=== PATIENT | female | born 1965 | race African-American/Black ===

== ENCOUNTER 2017-04-19 03:10 | Emergency (ER) | payer MEDICARE, MEDICAID ==
[~2017-04-19] VITALS: Ht 165.1 cm; Wt 193.0 kg
[~2017-04-19 03:10] MED LIST: ACETTAB3 OR; ATORVASTATIN CA40 MG PO; BACTRIM DS1 TAB PO; CEPHALEXIN500 MG PO; CIPRO250 MG OR; CIPROFLOXACN500 MG PO; CRANBERRY250 M1 PO; CYCLOBENZAPR10 MG PO; DIABETA2.5 MG OR; DICLOFENAC75 MG OR; FEOSOL45 MG PO; FERR SULFATE325 MG PO; GLUCOPHAGE500 MG OR; GLYBURIDE5 MG PO; HYDROCHLOROT25 MG OR; IBUPROFEN800 MG OR; INSULIN SC; JANUVIA100 MG OR; KEFLEX500 MG PO; LEVEMIR FL100 UNIT/M SC; LEVEMIR FLEXPEN SC; LISINOP/HCTZ1 TAB OR; LISINOP/HCTZ1 TAB PO; LISINOPRIL/HYDR1 TA1 PO; MEGACE20 MG PO; MEGESTROL AC20 MG OR; MEGESTROL AC20 MG PO; METFORMIN500 MG PO; MOTRIN800 MG/TAB PO; NAPROSYN250 MG PO; NAPROSYN500 MG PO; NEO/POLY/HC11 OT; NOVOLOG FLEXPEN SC; PREMARIN VAG0.625 MG VA; PREMARIN1.25 MG OR; PREMARIN1.25 MG PO; PRILOSEC20 MG/CAP PO; PYRIDIUM200 MG OR; TORADOL30 MG/VIAL IJ; TRAMADOL HCL50 MG PO; ZITHROMAX250 MG OR; [UNRECOGNIZED DRUG - REMARK] OR; [UNRECOGNIZED DRUG - SUPPLY] XX
[2017-04-19] MEDS ORDERED: ATORVASTATIN CA10 MG PO (03:20)
[2017-04-19 03:48] LABS: INFLUENZA A POSITIVE (NONE DETECT); INFLUENZA B NONE DETECTED (NONE DETECT)
[2017-04-19] MEDS ORDERED: TAM75CAP PO (04:13)
[2017-04-19] MEDS ORDERED: ROBITUSSIN AC10 ML PO (04:13)
--- NOTE | 2017-04-19 04:24 | NUR ---
BREATHING TREATMENT GIVEN. BREATHING TECH. FOR GOOD DEPOSITION TO THE LUNGS.
[2017-04-19 04:35] VITALS: BP 147/95
== END 2017-04-19 04:35 | disposition home or self-care (01) ==
LOC: ED 03:10
PROVIDERS: Emergency Medicine
DX: J11.1 Influenza due to unidentified influenza virus with other respiratory manifestations (principal); R05 Cough; R50.9 Fever, unspecified; R52 Pain, unspecified; I10 Essential (primary) hypertension; E11.9 Type 2 diabetes mellitus without complications; Z79.4 Long term (current) use of insulin

== ENCOUNTER 2018-01-31 09:03 | Emergency (ER) | payer MEDICARE, MEDICAID ==
[~2018-01-31] VITALS: Ht 165.1 cm; Wt 200.0 kg
[~2018-01-31 09:03] MED LIST changes: +ATORVASTATIN CA10 MG PO; +ROBITUSSIN AC10 ML PO; +TAM75CAP PO
[2018-01-31] MEDS ORDERED: MELOXICAM7.5 MG PO (10:06)
[2018-01-31] MEDS ORDERED: CENTRUM SILVER1 TA1 PO (10:08)
[2018-01-31] MEDS ORDERED: VICTOZA18 MG/3 ML SC (10:10)
[2018-01-31] MEDS ORDERED: TRESIBA FL200 UNIT/M SC (10:11)
[2018-01-31] MEDS ORDERED: CYCLOBENZAPRINE5 MG PO (10:31)
[2018-01-31] MEDS ORDERED: MOTRIN400 MG PO (10:31)
[2018-01-31 10:35] VITALS: BP 172/112
== END 2018-01-31 10:51 | disposition home or self-care (01) ==
LOC: ED 09:03
DX: M54.5 Low back pain (principal); M25.551 Pain in right hip; M79.604 Pain in right leg; I10 Essential (primary) hypertension; E11.9 Type 2 diabetes mellitus without complications

== ENCOUNTER 2018-05-08 20:34 | Emergency (ER) | payer MEDICARE, MEDICAID ==
[~2018-05-08] VITALS: Ht 165.1 cm; Wt 201.8 kg
[~2018-05-08 20:34] MED LIST changes: +CENTRUM SILVER1 TA1 PO; +CYCLOBENZAPRINE5 MG PO; +MELOXICAM7.5 MG PO; +MOTRIN400 MG PO; +TRESIBA FL200 UNIT/M SC; +VICTOZA18 MG/3 ML SC
[2018-05-08 23:54] VITALS: BP 135/84
== END 2018-05-08 23:54 | disposition left against medical advice (07) ==
LOC: ED 20:34
DX: R09.89 Other specified symptoms and signs involving the circulatory and respiratory systems (principal); X58.XXXA Exposure to other specified factors, initial encounter; Y92.009 Unspecified place in unspecified non-institutional (private) residence as the place of occurrence of the external cause; Z91.19 Patient's noncompliance with other medical treatment and regimen

== ENCOUNTER 2019-10-17 07:31 | Emergency (ER) | payer MEDICARE, MEDICAID ==
[~2019-10-17] VITALS: Ht 165.1 cm; Wt 199.0 kg
[2019-10-17 08:44] LABS: HEMATOCRIT 32.8 % (37.0-47.0); HEMOGLOBIN 11.5 g/dl (12.0-16.0); IMMATURE GRANULOCYTES 0.4 % (0.0-5.0); MEAN CORPUSCULAR HGB 28.9 pG CALC (26.0-32.0); MEAN CORPUSCULAR HGB CONC 35.1 g/dL CAL (32.0-36.0); NEUT# 5.52 thou/uL (2.00-7.15); RED BLOOD COUNT 3.98 mill/uL (4.20-5.60); RED CELL DISTRI WIDTH 14.5 % (11.5-15.5)
[2019-10-17 08:56] LABS: MEAN CELL VOLUME 82.4 fL CALC (80.0-100.0)
[2019-10-17 09:00] LABS: ALBUMIN 3.9 g/dL (3.2-5.0); ALKALINE PHOSPHATASE 62 u/l (38-126); ANION GAP 12 (6-22 (CALC)); BILIRUBIN, TOTAL 0.4 mg/dL (0.0-1.4); BUN 18 mg/dL (7-17); BUN/CREATININE RATIO 18 (12-20 (CALC)); CARBON DIOXIDE 23 mmol/l (22-30); CHLORIDE 107 mmol/l (95-108); GFR 58 ML/MIN (>=60 (CALC)); GFR FOR AFR.AMER. > 60 ML/MIN (>=60 (CALC)); SGOT/AST 25 u/l (14-36); SODIUM 137 mmol/l (137-146); TOTAL PROTEIN 7.8 g/dL (6.3-8.2)
[2019-10-17 09:16] LABS: POTASSIUM 4.6 mmol/l (3.5-5.1)
[2019-10-17] MEDS ORDERED: FLEXERIL PO (09:57)
[2019-10-17] MEDS ORDERED: LOMOTIL2.5 MG PO (09:57)
[2019-10-17] MEDS ORDERED: ULTRAM50 M1 PO (09:57)
[2019-10-17 10:03] VITALS: BP 138/80
== END 2019-10-17 10:17 | disposition home or self-care (01) ==
LOC: ED 07:31
PROVIDERS: Emergency Medicine
DX: M54.41 Lumbago with sciatica, right side (principal); M47.816 Spondylosis without myelopathy or radiculopathy, lumbar region; I10 Essential (primary) hypertension; E11.9 Type 2 diabetes mellitus without complications; E66.01 Morbid (severe) obesity due to excess calories; Z86.19 Personal history of other infectious and parasitic diseases; Z79.4 Long term (current) use of insulin

== ENCOUNTER 2020-04-07 15:00 | Emergency (ER) | payer MEDICARE, MEDICAID ==
[~2020-04-07] VITALS: Ht 165.1 cm; Wt 198.6 kg
[~2020-04-07 15:00] MED LIST changes: +FLEXERIL PO; +LOMOTIL2.5 MG PO; +ULTRAM50 M1 PO
[2020-04-07 16:25] LABS: HEMATOCRIT 34.5 % (37.0-47.0); HEMOGLOBIN 12.2 g/dl (12.0-16.0); IMMATURE GRANULOCYTES 0.5 % (0.0-5.0); MEAN CELL VOLUME 82.7 fL CALC (80.0-100.0); MEAN CORPUSCULAR HGB 29.3 pG CALC (26.0-32.0); MEAN CORPUSCULAR HGB CONC 35.4 g/dL CAL (32.0-36.0); NEUT# 7.03 thou/uL (2.00-7.15); RED BLOOD COUNT 4.17 mill/uL (4.20-5.60); RED CELL DISTRI WIDTH 14.6 % (11.5-15.5)
[2020-04-07 16:48] LABS: ALBUMIN 3.9 g/dL (3.2-5.0); ALKALINE PHOSPHATASE 61 u/l (38-126); ANION GAP 13 (6-22 (CALC)); BILIRUBIN, TOTAL 0.3 mg/dL (0.0-1.4); BUN 16 mg/dL (7-17); BUN/CREATININE RATIO 17 (12-20 (CALC)); CARBON DIOXIDE 23 mmol/l (22-30); CHLORIDE 106 mmol/l (95-108); CREATININE 0.9 mg/dL (0.5-1.0); GFR > 60 ML/MIN (>=60 (CALC)); GFR FOR AFR.AMER. > 60 ML/MIN (>=60 (CALC)); INTERNATIONAL NORMALIZED RATIO 0.9 RATIO (0.7-1.3); POTASSIUM 4.1 mmol/l (3.5-5.1); SGOT/AST 33 u/l (14-36); SODIUM 137 mmol/l (137-146); TOTAL PROTEIN 7.7 g/dL (6.3-8.2)
[2020-04-07 16:54] LABS: PROTHROMBIN TIME 8.8 SECONDS (9.0-12.5)
[2020-04-07 17:37] VITALS: BP 109/67
== END 2020-04-07 18:13 | disposition home or self-care (01) ==
LOC: ED 15:00
PROVIDERS: Student in an Organized Health Care Education/Training Program
DX: R06.02 Shortness of breath (principal); E11.9 Type 2 diabetes mellitus without complications; I10 Essential (primary) hypertension; E66.01 Morbid (severe) obesity due to excess calories; Z79.4 Long term (current) use of insulin; Z86.19 Personal history of other infectious and parasitic diseases; Z20.828 Contact with and (suspected) exposure to other viral communicable diseases

== ENCOUNTER 2020-06-02 06:44 | Day surgery (SDC) | payer MEDICARE, MEDICAID ==
[~2020-06-02] VITALS: Ht 165.1 cm; Wt 200.0 kg
[~2020-06-02 06:44] MED LIST changes: +AMMONIUM LACTATE12 % EX; +ASPIRIN ADULT L81 M2 PO; +CYCLOBENZAPRINE10 MG PO; +DICLOFENAC SODIUM1 % EX; +DIPHEN/ATROP2.5 M1 PO; +FOLIC ACID400 MC1 PO; +FUROSEMIDE80 M1 PO; +KLOR-CON M1010 MEQ PO; +KLS IBUPROFEN IB PO; +LIPITOR40 M1 PO; +METFORMIN HCL500 M1 PO; +METOPROL TAR25 M1 PO; +NEURONTIN300 MG PO; +NORCO1 TA2 PO; +SM ALLERGY50 MCG/ACT; +VENTOLIN HF1 IN; +VITAMIN B COMPL1 TAB PO
[2020-06-02 09:40] VITALS: BP 154/78
== END 2020-06-02 10:01 | disposition home or self-care (01) ==
LOC: ORM 06:44
PROVIDERS: ATTEND Anesthesiology Pain Medicine
DX: M54.5 Low back pain (principal); M46.1 Sacroiliitis, not elsewhere classified; M12.9 Arthropathy, unspecified; Z01.84 Encounter for antibody response examination

== ENCOUNTER 2021-03-19 15:47 | Emergency (ER) | payer MEDICARE, MEDICAID ==
[~2021-03-19] VITALS: Ht 165.1 cm; Wt 220.0 kg
[~2021-03-19 15:47] MED LIST changes: +HYDROCO/APAP1 T10 PO; +NEURONTIN600 MG PO
[2021-03-19 17:24] LABS: HEMATOCRIT 36.9 % (37.0-47.0); HEMOGLOBIN 13.1 g/dl (12.0-16.0); IMMATURE GRANULOCYTES 0.4 % (0.0-5.0); MEAN CELL VOLUME 82.9 fL CALC (80.0-100.0); MEAN CORPUSCULAR HGB 29.4 pG CALC (26.0-32.0); MEAN CORPUSCULAR HGB CONC 35.5 g/dL CAL (32.0-36.0); NEUT# 5.13 thou/uL (2.00-7.15); RED BLOOD COUNT 4.45 mill/uL (4.20-5.60); RED CELL DISTRI WIDTH 14.1 % (11.5-15.5)
[2021-03-19 17:39] LABS: CREATININE 1.2 mg/dL (0.5-1.0); POTASSIUM 4.2 mmol/l (3.5-5.1)
[2021-03-19] MEDS ORDERED: ZPAK PO (18:20)
[2021-03-19] MEDS ORDERED: PROVENTIL0.083 % IN (18:20)
[2021-03-19] MEDS ORDERED: PROAIR HFA108 MCG/AC PO (18:20)
[2021-03-19] MEDS ORDERED: NEBULIZER KIT/TUBING PO (18:20)
[2021-03-19] MEDS ORDERED: DECADRON4 M1 PO (18:20)
[2021-03-19] MEDS ORDERED: MECLIZINE25 MG PO (18:20)
[2021-03-19 19:09] VITALS: BP 135/68
== END 2021-03-19 19:24 | disposition home or self-care (01) ==
LOC: ED 15:47
PROVIDERS: Family Medicine
DX: R42 Dizziness and giddiness (principal); J06.9 Acute upper respiratory infection, unspecified; I10 Essential (primary) hypertension; E11.9 Type 2 diabetes mellitus without complications; E66.01 Morbid (severe) obesity due to excess calories; Z86.16 Personal history of COVID-19; Z79.84 Long term (current) use of oral hypoglycemic drugs; Z79.4 Long term (current) use of insulin; Z20.822 Contact with and (suspected) exposure to COVID-19

== ENCOUNTER 2021-09-05 10:11 | Emergency (ER) | payer MEDICARE, MEDICAID ==
[~2021-09-05] VITALS: Ht 165.1 cm; Wt 204.0 kg
[~2021-09-05 10:11] MED LIST changes: +DECADRON4 M1 PO; +MECLIZINE25 MG PO; +NEBULIZER KIT/TUBING PO; +PROAIR HFA108 MCG/AC PO; +PROVENTIL0.083 % IN; +ZPAK PO
[2021-09-05 10:46] VITALS: BP 136/81
[2021-09-05 11:00] VITALS: BP 149/90
[2021-09-05 11:23] VITALS: BP 149/90
[2021-09-05] MEDS ORDERED: ATIVAN1 M1 PO (13:03)
[2021-09-05] MEDS ORDERED: PREDNISONE20 MG PO (13:03)
== END 2021-09-05 13:20 | disposition home or self-care (01) ==
LOC: ED 10:11
DX: M54.9 Dorsalgia, unspecified (principal); M79.604 Pain in right leg; I10 Essential (primary) hypertension; E11.9 Type 2 diabetes mellitus without complications; Z86.16 Personal history of COVID-19; E66.01 Morbid (severe) obesity due to excess calories; Z79.84 Long term (current) use of oral hypoglycemic drugs; Z79.4 Long term (current) use of insulin
CPT/HCPCS: J2060

== ENCOUNTER 2023-05-24 11:58 | Observation (INO) | payer MEDICARE, MEDICAID ==
[~2023-05-24] VITALS: Ht 165.1 cm; Wt 184.2 kg
[2023-05-24] VITALS (18 sets, daily range): BP systolic 82–166; BP diastolic 46–103
[~2023-05-24 11:58] MED LIST changes: +ATIVAN1 M1 PO; +FLEXERIL5 M1 PO; +PREDNISONE20 MG PO
[2023-05-24 12:55] LABS: BASO% 0.1 % (0-3); EOS% 6.7 % (0-8); HEMATOCRIT 34.1 % (37.0-47.0); HEMOGLOBIN 12.3 g/dl (12.0-16.0); IMMATURE GRANULOCYTES 0.3 % (0.0-5.0); LYMPH% 33.3 % (15-41); MEAN CELL VOLUME 83.6 fL CALC (80.0-100.0); MEAN CORPUSCULAR HGB 30.1 pG CALC (26.0-32.0); MEAN CORPUSCULAR HGB CONC 36.1 g/dL CAL (32.0-36.0); MONO% 6.2 % (2-13); NEUT# 6.26 thou/uL (2.00-7.15); NEUT% 53.4 % (42-76); RED BLOOD COUNT 4.08 mill/uL (4.20-5.60); RED CELL DISTRI WIDTH 13.9 % (11.5-15.5)
[2023-05-24 14:03] LABS: ALBUMIN 4.2 g/dL (3.2-5.0); ALKALINE PHOSPHATASE 83 u/l (38-126); BILIRUBIN, TOTAL 0.4 mg/dL (0.02-1.3); CHLORIDE 107 mmol/l (95-108); CREATININE 1.5 mg/dL (0.5-1.0); GFR FOR AFR.AMER. 43 ML/MIN (>=60 (CALC)); GFR OTHER RACES 36 ML/MIN (>=60 (CALC)); POTASSIUM 4.8 mmol/l (3.5-5.1); SGOT/AST 19 u/l (14-36); SODIUM 141 mmol/l (137-146); TOTAL PROTEIN 7.7 g/dL (6.3-8.2)
[2023-05-24 14:10] LABS: URINE BILIRUBIN - DIPSTICK Negative (NEGATIVE); URINE BLOOD DIPSTICK Negative (NEGATIVE); URINE GLUCOSE - DIPSTICK Negative (NEGATIVE); URINE KETONE Negative (NEGATIVE); URINE LEUK ESTERASE Negative (NEGATIVE); URINE NITRITE - DIPSTICK Negative (Negative); URINE PH 5.5 (4.5-8.0); URINE PROTEIN - DIPSTICK Negative (NEG-TRACE); URINE UROBILINOGEN - DIPSTICK 0.2 E.U./dL (0.2)
[2023-05-24 14:11] LABS: ANION GAP 16 (6-22 (CALC)); BUN 36 mg/dL (7-17); BUN/CREATININE RATIO 24 (12-20 (CALC)); CARBON DIOXIDE 23 mmol/l (22-30)
[2023-05-24 14:18] LABS: URINE COLOR Yellow
[2023-05-25 03:00] VITALS: BP 111/75
[2023-05-25 06:44] LABS: BASO% 0.3 % (0-3); EOS% 6.4 % (0-8); HEMOGLOBIN 11.8 g/dl (12.0-16.0); IMMATURE GRANULOCYTES 0.4 % (0.0-5.0); LYMPH% 28.2 % (15-41); MEAN CELL VOLUME 83.3 fL CALC (80.0-100.0); MEAN CORPUSCULAR HGB 29.8 pG CALC (26.0-32.0); MEAN CORPUSCULAR HGB CONC 35.8 g/dL CAL (32.0-36.0); MONO% 5.5 % (2-13); NEUT# 6.7 thou/uL (2.00-7.15); NEUT% 59.2 % (42-76); RED BLOOD COUNT 3.96 mill/uL (4.20-5.60)
[2023-05-25 07:13] VITALS: BP 114/74
[2023-05-25 07:40] LABS: ALBUMIN 3.8 g/dL (3.2-5.0); CHOLESTEROL HDL RATIO 3.3 (<4.4 (CALC)); CREATININE 1.2 mg/dL (0.5-1.0); MAGNESIUM 1.7 mg/dL (1.6-2.3); POTASSIUM 4.2 mmol/l (3.5-5.1)
[2023-05-25 07:44] LABS: BILIRUBIN, TOTAL 0.7 mg/dL (0.02-1.3)
[2023-05-25 09:34] VITALS: BP 127/46
[2023-05-25 11:03] VITALS: BP 110/50
[2023-05-25 11:09] VITALS: BP 110/50
[2023-05-25] MEDS ORDERED: PROTONIX40 M2 PO (13:01)
== END 2023-05-25 14:20 | disposition home or self-care (01) ==
LOC: ED 11:58 → ED-I 14:00 → ED 14:32 → MS2 14:33
PROVIDERS: Nurse Practitioner; ADMIT Student in an Organized Health Care Education/Training Program; ATTEND Student in an Organized Health Care Education/Training Program
DX: R07.9 Chest pain, unspecified (principal); R10.13 Epigastric pain; R06.02 Shortness of breath; I11.0 Hypertensive heart disease with heart failure; I50.9 Heart failure, unspecified; E11.9 Type 2 diabetes mellitus without complications; E78.5 Hyperlipidemia, unspecified; E66.01 Morbid (severe) obesity due to excess calories; Z68.44 Body mass index [BMI] 60.0-69.9, adult; Z86.16 Personal history of COVID-19; Z79.84 Long term (current) use of oral hypoglycemic drugs; Z79.4 Long term (current) use of insulin
CPT/HCPCS: J1650; S0164